=== PATIENT | female | born 1980 | race Caucasian/White ===

== ENCOUNTER 2023-05-03 04:59 | Emergency (ER) | payer SELFPAY ==
[2023-05-03 05:04] VITALS: BP 142/64
--- NOTE | 2023-05-03 06:15 | ED.GENMED ---
History of Present Illness
General
Chief Complaint: Crisis Evaluation
Source: patient and other ([facility])
Exam Limitations: none
Time Seen by Provider: 05/03/23 06:05
Nursing documentation reviewed up to this point in time: agreed with
Travel History
Have you had any contact with someone who has COVID-19?: Unable to Answer
Do you have any symptoms of coronavirus? Fever > 100 degrees, chills, cough, shortness of breath, sore throat, loss of taste or smell, muscle aches, or headache?: Unable to Answer
History of Present Illness
History of Present Illness:
42-year-old female brought in by [facility] for evaluation she was picked up on a warrant in bed saline sent to the halfway she did not give any information brought here for evaluation
Here she tells me her name, she is asking my name not particularly cooperative, denies any fevers chest pain shortness of breath he has no medical complaints
Past History
Social History
Tobacco: Other
Alcohol: Other
Drug: Other
Employment: Not employed
Review of Systems
Review of Systems
All Other Systems: Not applicable
Constitutional: Reports no symptoms
Respiratory: Reports no symptoms
Cardiac: Reports no symptoms
Phy Exam
Physical Exam
Physical Exam:
Physical Exam
General: 42 female nontoxic stable vital signs
Neck: No overt signs of head or neck trauma
Lungs: no acute respiratory distress.
Neuro: alert and oriented. no focal neurological deficits
Skin: no rash
Psychiatric: Disheveled, somewhat cooperative, not appear to be hallucinating
Extremities: no edema.
Course
Vital Signs
Initial and Last Documented VS:
Initial Vital Signs
Temp Pulse Resp BP Pulse Ox
98.1 F 92 16 142/64 98
05/03/23 05:04 05/03/23 05:04 05/03/23 05:04 05/03/23 05:04 05/03/23 05:04
Last Documented Vital Signs
Temp Pulse Resp BP Pulse Ox
98.1 F 92 16 142/64 98
05/03/23 05:04 05/03/23 05:04 05/03/23 05:04 05/03/23 05:04 05/03/23 05:04
MDM/Problems Addressed
Differential Diagnosis Includes:
No obvious contraindications to incarceration
*Critical Care Note
Total Time (30-74mins, 75-104mins- exclusive of procedures): Not Applicable
Update Note
Update Note:
Patient with stable vital signs, poor historian although more or less cooperative with my questions, she is dismissive, I see no contraindication to incarceration
ED Attending Note
-
Portions of this chart may have been created with voice recognition software.� Occasional wrong word or��sound alike� substitutions may have occurred due to the inherent limitations of voice recognition software.
Discharge Plan
Departure
Patient Disposition: [facility]
Date of Disposition: 05/03/23
Time of Disposition: 06:17
Patient with high blood pressure during this ER visit?: No
Condition: Good
Covid-19: Not Applicable
Discharge Problem:
Encounter for medical assessment
Referrals:
NONE,* [Family Provider] -
Activity Restrictions/Additional Instructions:
Patient is medically clear for incarceration
Interventions
Interventions:
*Risk Screen - Suicide Last Done: 05/03/23 05:04
*General Assessment Last Done: 05/03/23 05:04
*Neglect/Abuse Screening Last Done: 05/03/23 05:04
ED- Fall Risk Assessment Last Done: 05/03/23 05:04
*ED COVID-19 Vaccine History Last Done: 05/03/23 05:04
ED-Psychological Assessment Last Done: 05/03/23 05:16
== END 2023-05-03 06:25 ==
LOC: EMR 04:59
PROVIDERS: EMERGENCY PHYSICIAN Emergency Medicine
DX: Z04.89 Encounter for examination and observation for other specified reasons (principal)
CPT/HCPCS: 99282